=== PATIENT | male | born 1970 | race Caucasian/White ===

== ENCOUNTER 2023-11-20 15:50 | Emergency (ER) | payer OTHER ==
[~2023-11-20] VITALS: Ht 170.2 cm; Wt 83.0 kg
[2023-11-20 16:06] VITALS: BP 137/87; O2SAT 98
[2023-11-20] MEDS: TETANUS, DIPHTHERIA, PERTUSSIS VAC/PF 0.5ML (>10YR OLD) IM ONE (19:15)
[2023-11-20] MEDS ORDERED: TOPUD MT (19:35)
[2023-11-20] MEDS ORDERED: IBUP-1525 MT (19:35)
[2023-11-20] MEDS: LIDOCAINE HCL 1% 20ML VIAL INFIL ONE (19:38)
[2023-11-20 20:04] VITALS: PULSE 79; RESP 16; TEMP 98.6
== END 2023-11-20 20:05 | disposition home or self-care (01) ==
LOC: ER 15:50
DX: S01.81XA Laceration without foreign body of other part of head, initial encounter (principal); I10 Essential (primary) hypertension; X58.XXXA Exposure to other specified factors, initial encounter; Y93.89 Activity, other specified; Y92.89 Other specified places as the place of occurrence of the external cause; Y99.8 Other external cause status
CPT/HCPCS: 99285; 70450; 90715; 12002; 90471; J3490

== ENCOUNTER 2023-11-22 20:27 | Emergency (ER) | payer OTHER ==
[~2023-11-22] VITALS: Ht 170.2 cm; Wt 83.0 kg
[~2023-11-22 20:27] MED LIST: IBUP-1525 MT; TOPUD MT
[2023-11-22 20:29] VITALS: PULSE 74
[2023-11-22 20:35] VITALS: BP 127/87; RESP 18; TEMP 98; O2SAT 97
== END 2023-11-23 00:03 | disposition left against medical advice (07) ==
LOC: ER 20:27
DX: Z48.02 Encounter for removal of sutures (principal); Z53.21 Procedure and treatment not carried out due to patient leaving prior to being seen by health care provider

== ENCOUNTER 2023-11-29 14:14 | Emergency (ER) | payer OTHER ==
[~2023-11-29] VITALS: Ht 172.7 cm; Wt 81.0 kg
[2023-11-29 14:42] VITALS: BP 149/110; PULSE 79; RESP 18; O2SAT 100
== END 2023-11-29 17:30 | disposition home or self-care (01) ==
LOC: ER 14:14
DX: S01.81XD Laceration without foreign body of other part of head, subsequent encounter (principal); Z48.02 Encounter for removal of sutures; X58.XXXD Exposure to other specified factors, subsequent encounter
CPT/HCPCS: 99281; Z7610 ×2